=== PATIENT | female | born 2000 ===

== ENCOUNTER 2022-04-28 14:24 | Emergency (ER) | payer MEDICAID ==
[2022-04-28 14:34] VITALS: BP 124/63
--- NOTE | 2022-04-28 15:19 | Emergency Department Report ---
ED Upper Extremity Inj HPI - General Chief Complaint: Extremity Injury, Upper Stated Complaint: NAIL PAIN Time Seen by Provider: 04/28/22 14:34 Source: patient Mode of arrival: Ambulatory Limitations: No Limitations - History of Present Illness Initial Comments: This is a 21-year-old female nontoxic, well nourished in appearance, no acute signs of distress presents to the ED with c/o of left middle finger pain x several days. Stated now has some drainge under nail bed. Patient stated that he hit her finger nail against the table. Patient denies any other injuries or trauma. Patient denies any numbness, tingling, fever, chills, nausea, vomiting, chest pain, shortness of breath, headache, stiff neck. Patient denies any joint swelling or joint redness. Patient denies decreased range of motion. Patient denies any allergies or significant past medical history. MD Complaint: Injury to:: left, finger Other Extremity Injury: Fingers: Left Severity scale (0 -10): 3 Improves With: immobilization Worsens With: other (palpation) Associated Symptoms: denies other symptoms. denies: weakness, numbness, neck pain, suspects foreign body, nausea/vomiting, heard/felt popping sensat ED Review of Systems ROS: Stated complaint: NAIL PAIN Other details as noted in HPI Comment: All other systems reviewed and negative Constitutional: denies: chills, fever Eyes: denies: eye pain, eye discharge, vision change ENT: denies: ear pain, throat pain Respiratory: denies: cough, shortness of breath, wheezing Cardiovascular: denies: chest pain, palpitations Endocrine: no symptoms reported Gastrointestinal: denies: abdominal pain, nausea, diarrhea Genitourinary: denies: urgency, dysuria, discharge Musculoskeletal: denies: back pain, joint swelling, arthralgia Skin: denies: rash, lesions Neurological: denies: headache, weakness, paresthesias Psychiatric: denies: anxiety, depression Hematological/Lymphatic: denies: easy bleeding, easy bruising ED Past Medical Hx - Past Medical History Previous Medical History?: No - Surgical History Past Surgical History?: No - Social History Smoking Status: Never Smoker ED Physical Exam - General Limitations: No Limitations General appearance: alert, in no apparent distress - Head Head exam: Present: atraumatic, normocephalic - Eye Eye exam: Present: normal appearance - Neck Neck exam: Present: full ROM. Absent: lymphadenopathy - Respiratory Respiratory exam: Absent: respiratory distress - Cardiovascular Cardiovascular Exam: Present: regular rate - Extremities Exam Extremities exam: Present: full ROM, tenderness, normal capillary refill. Absent: joint swelling - Expanded Upper Extremity Exam Left Shoulder Exam: Present: normal inspection, full ROM. Absent: tenderness, swelling Upper Arm exam: Present: normal inspection, full ROM. Absent: tenderness, swelling Elbow exam: Present: normal inspection, full ROM. Absent: tenderness, swelling Forearm Wrist exam: Present: normal inspection, full ROM. Absent: tenderness, swelling Hand Wrist exam: Present: full ROM, tenderness, other (Patient does have acrylic nail with some clear drainage noted on exam). Absent: swelling, abrasion, laceration, ecchymosis, deformity, crepidus, dislocation, erythema, amputation, nail avulsion, subungual hematoma Vascular: Present: normal capillary refill. Absent: vascular compromise (Neurovascular within normal limits) - Back Exam Back exam: Present: full ROM - Neurological Exam Neurological exam: Present: alert, oriented X3, normal gait - Psychiatric Psychiatric exam: Present: normal affect, normal mood - Skin Skin exam: Present: warm, dry, intact, normal color. Absent: rash ED Course Vital Signs 04/28/22 14:30 Temperature 98.0 F Pulse Rate 78 Respiratory 14 Rate Blood Pressure 124/63 O2 Sat by Pulse 100 Oximetry - Reevaluation(s) Reevaluation #1: 04/28/22 15:18 Patient is speaking in full sentences with no signs of distress noted. ED Medical Decision Making - Medical Decision Making 22-year-old female that presents with left finger injury. Patient is stable and was examined by me. X-ray has been ordered. Patient stated that she needs to leave at this time but I instructed and educated patient my concerns but patient stated she still needs to leave. Educated that patient needs to have further evaluation, treatment and appropriate disposition but patient still refused and sign AGAINST MEDICAL ADVICE. Patient was instructed to follow-up with a primary care doctor and orthopedic as soon as possible or if symptoms worsen and continue return to emergency room as soon as possible. At time of signing AGAINST MEDICAL ADVICE, the patient does not seem toxic or ill in appearance. No acute signs of distress noted. No further questions noted by the patient. Critical care attestation.: If time is entered above; I have spent that time in minutes in the direct care of this critically ill patient, excluding procedure time. ED Disposition Clinical Impression: Injury of left middle finger Qualifiers: Encounter type: initial encounter Qualified Code(s): S69.92XA - Unspecified injury of left wrist, hand and finger(s), initial encounter Disposition: 07 LEFT AGAINST MEDICAL ADVICE Is pt being admited?: No Condition: Undetermined Additional Instructions: Follow-up with a primary care doctor and orthopedic as soon as possible or if symptoms worsen and continue return to emergency room as soon as possible. Your condition may be serious as instructed and educated today in the ER but you decided to leave AGAINST MEDICAL ADVICE. It is highly recommended to see a provider as soon as possible to rule out serious complications that was describ ed to you during your ED stay. Referrals: LUIS MANUEL JERNIGAN MD [Staff Physician] - RANI AGRAWAL MD [Staff Physician] - JOSELO PRIMARY CAREMD [Referring] - [facility] Time of Disposition: 15:20
== END 2022-04-28 15:20 | disposition left against medical advice (07) ==
LOC: ED 14:24
DX: S69.92XA Unspecified injury of left wrist, hand and finger(s), initial encounter (principal); X58.XXXA Exposure to other specified factors, initial encounter; Y93.89 Activity, other specified; Y92.89 Other specified places as the place of occurrence of the external cause; Y99.8 Other external cause status
CPT/HCPCS: 99282